=== PATIENT | female | born 1970 | race Caucasian/White ===

== ENCOUNTER → 2025-03-05 13:46 | Outpatient (BNVA) | payer BC, SELFPAY | PROVIDERS: PCP Family Medicine; Visit Provider Family Medicine | DX: E05.90 Thyrotoxicosis, unspecified without thyrotoxic crisis or storm (principal); N32.81 Overactive bladder; R41.89 Other symptoms and signs involving cognitive functions and awareness; R23.2 Flushing | CPT/HCPCS: 82607; 83001; 83516; 84439; 84443; 84481; 86592 ==

== ENCOUNTER 2025-03-16 06:15 | Outpatient (CLI) | payer BC, SELFPAY ==
--- NOTE | 2025-03-16 06:30 | US_ITS ---
WS: [id number] ULTRASOUND THYROID TECHNIQUE: Ultrasound of the thyroid. CLINICAL INFORMATION: [facility] COMPARISON: None. FINDINGS: Thyroid: Right and left thyroid lobes are normal in size with heterogeneous micronodular echotexture. Increased vascularity. Right thyroid lobe: 4.3 cm x 1.1 cm x 1.2 cm Left thyroid lobe: 5.0 cm x 1.6 cm x 1.6 cm Dominant complex left-sided nodule measuring 1.0 x 1.0 x 1.6 cm Isthmus: 3.0 mm. Cervical lymphadenopathy: None. US/US thyroid [id number] IMPRESSION: 1. Heterogeneous thyroid echotexture with increased vascularity 2. Dominant complex left-sided nodule measuring 1.0 x 1.0 x 1.6 cm. Consider f urther evaluation with FNA. Otherwise recommend 12-month follow-up. See TI-RADS scoring below. 3. TIRADS Category 4: Moderately suspicious (total points = 6) FNA if 1.5 cm Follow if 1 cm (at 1, 2, 3, and 5 years
== END 2025-03-16 06:16 | disposition home or self-care (01) ==
PROVIDERS: PCP Family Medicine; Visit Provider Family Medicine
DX: E05.90 Thyrotoxicosis, unspecified without thyrotoxic crisis or storm (principal); E07.89 Other specified disorders of thyroid; E04.1 Nontoxic single thyroid nodule
CPT/HCPCS: 76536

== ENCOUNTER 2025-04-09 10:57 | Outpatient (CLI) | payer BC, SELFPAY ==
--- NOTE | 2025-04-09 11:00 | MR_ITS ---
WS: [id number] MRI HEAD WITHOUT CONTRAST TECHNIQUE: Sagittal T1, T2 axial, T2 axial FLAIR, axial and coronal T1 images, axial susceptibility weighted imaging, axial diffusion weighted images, and coronal T2 images were obtained. CLINICAL INFORMATION: new dx memory loss, dementia COMPARISON: None. FINDINGS: No evidence of restricted diffusion to suggest acute ischemia. Mild small vessel changes. Moderate parenchymal volume loss worst in the parietal lobes and temporal lobes. Normal posterior fossa. Normal vascular flow voids at the skull base. No extra-axial fluid collections. Mild mucosal thickening in the frontal sinuses. Mastoid air cells are well aerated. Normal posterior nasopharynx. No hemosiderin on susceptibility-weighted images. Normal optic chiasm and pituitary infundibulum. No other acute findings. MR/MR head wo con* [id number] IMPRESSION: 1. No evidence of restricted diffusion to suggest acute ischemia. 2. Mild small vessel changes with moderate parenchymal volume loss worse in th e bilateral parietal lobes. 3. Moderate symmetric atrophy temporal lobes and hippocampal formations. 4. No hemosiderin on the susceptibly weighted images. 5. No other acute findings.
== END 2025-04-09 10:58 | disposition home or self-care (01) ==
PROVIDERS: PCP Family Medicine; Visit Provider Family Medicine
DX: R41.89 Other symptoms and signs involving cognitive functions and awareness (principal); F03.918 Unspecified dementia, unspecified severity, with other behavioral disturbance; I67.89 Other cerebrovascular disease
CPT/HCPCS: 70551